=== PATIENT | female | born 1950 | race Hispanic/Latino ===

== ENCOUNTER 2016-05-31 16:56 | Emergency (ER) | payer OTHER ==
[~2016-05-31] VITALS: Ht 165.1 cm; Wt 55.8 kg
[2016-05-31] MEDS ORDERED: PANTOPRAZOLE SO40 M1 PO (18:01)
--- NOTE | 2016-05-31 18:02 | ED UPPER/LOWER EXTREMITY COMPL ---
History of Present Illness General Chief Complaint: Hand or Wrist Injury Stated Complaint: R WRIST INJURY Source: patient, family Exam Limitations: language barrier Vital Signs & Intake/Output Vital Signs & Intake/Output Vital Signs Date Time Temp Pulse Resp B/P Pulse O2 O2 Flow FiO2 Ox Delivery Rate 05/31 1858 98.5 66 20 129/61 98 Room Air 05/31 1715 97.7 05/31 1711 97.7 65 18 129/74 99 Room Air Allergies Coded Allergies: No Known Allergies (05/31/16) Reconcile Medications Hydrocodone/Acetaminophen (Vicodin 5-300 MG Tablet) 5 MG-300 MG TABLET 1 TAB PO TID PRN PAIN Pantoprazole Sodium 40 MG TABLET.DR 1 TAB PO DAILY GI (Reported) Triage Note: PT TO ED FOR A SLIP AND FALL ON ICE, LANDED ON R WRIST, WRIST APPEARS SWOLLEN, TENDER TO PALPATION, +PULSES AND SENSATION. Triage Nurses Notes Reviewed? yes Onset: Abrupt Duration: constant Timing: single episode today Severity: severe Severity Numbers: 7 Pain/Injury Location: Right: Wrist. Method of Injury: direct blow, fall No Modifying Factors: none Modifying Factors: Improves With: rest. Worsens With: movement. HPI: Patient is a 65-year-old female who presents to emergency room with daughter in which patient is primarily Emirati-speaking only and was daughter translate that patient was walking today fell on slipped on ice brace her fall with her right outstretched upper extremity and resulted in acute onset of sharp stabbing severe localized right wrist pain. Patient is right arm dominant. Denies any head strike elbow pain is otherwise without complaints. No medications prior to arrival. Skin is intact (MIKE HERNANDEZ) Past History Travel History Traveled to [place] past 21 day No Medical History Any Pertinent Medical History? none Neurological: NONE EENT: NONE Cardiovascular: NONE Respiratory: NONE Gastrointestinal: NONE Hepatic: NONE Renal: NONE Musculoskeletal: NONE Psychiatric: NONE Endocrine: NONE Blood Disorders: NONE Cancer(s): NONE DENTIST/Reproductive: NONE Surgical History Surgical History: non-contributory Psychosocial History What is your primary language Emirati Tobacco Use: Never used ETOH Use: denies use Illicit Drug Use: denies illicit drug use Family History Hx Contributory? No (MIKE HERNANDEZ) Review of Systems Review of Systems Constitutional: Reports: no symptoms. EENTM: Reports: no symptoms. Respiratory: Reports: no symptoms. Cardiovascular: Reports: no symptoms. Gastrointestinal/Abdominal: Reports: no symptoms. Genitourinary: Reports: no symptoms. Musculoskeletal: Reports: see HPI, joint pain. Skin: Reports: no symptoms. Neurological/Psychological: Reports: no symptoms. Hematologic/Endocrine: Reports: no symptoms. Immunological: Reports: no symptoms. All Other Systems: Reviewed and Negative (MIKE HERNANDEZ) Physical Exam Physical Exam General Appearance: mild distress Neurologic/Tendon: normal sensation, normal motor functions, normal tendon functions, responds to pain, no evidence tendon injury Skin: intact, normal color, warm/dry Comments: Well-developed well-nourished no apparent distress. HEENT: Atraumatic, extraocular motion intact Neck: Supple, no lymphadenopathy Back: Nontender Respiratory: No respiratory distress Extremities: Right shoulder normal inspection nontender Right elbow normal inspection nontender full active range of motion Right wrist generalized point tenderness noted decreased active range of motion noted Right hand mild scaphoid point tenderness noted Right upper extremity dermatomes intact radial pulse +2 Neuro: Alert and oriented x3 Psych: Mood affect normal, normal memory normal judgment. (MIKE HERNANDEZ) Progress Differential Diagnosis: arterial insufficiency, compartment syndrome, contusion, dislocation, DVT, fracture, gout, septic arthritis, sprain, tendon injury Plan of Care: Orders Procedure Date/time Status XRY-WRIST COMPLETE-RIGHT 05/31 1712 Active Patient was stressed the importance of close monitoring and follow-up with orthopedic doctor and she will comply. Patient did have concerns of nondisplaced radial fracture however there was mild scaphoid point tenderness and which again I stressed the importance of close monitoring with orthopedic doctor. Shoulder immobilizer and sugar tong wrist splint was applied in which pain post neurovascular was intact. Upon discharge patient looked well no apparent distress and will comply with discharge instructions and had no questions (MIKE HERNANDEZ) Diagnostic Imaging: Viewed by Me: Radiology Read. Radiology Impression: acute abnormality Comments: PATIENT: YOANA WEST PRESENT AGE: 65 PATIENT ACCOUNT NO: [id number] : 51 LOCATION: [facility] ORDERING PHYSICIAN: AMPARO PINEDA DO SERVICE DATE: 05/31/16-1712 EXAM TYPE: RAD - XRY-WRIST COMPLETE-RIGHT EXAMINATION: XR WRIST, RIGHT CLINICAL INFORMATION: 65-year-old female presented with swelling, pain at the right wrist following fall. COMPARISON: None TECHNIQUE: AP, lateral, and oblique views of the right wrist. FINDINGS: Subtle transverse radiolucencies are noted along the lateral aspect of the distal metaphysis of the right radius with subtle cortical irregularity along the ulnar aspect. Although, there is no definite evidence of any displaced fracture identified, the findings may represent subtle nondisplaced fracture. Follow up noncontrast CT scan of the right wrist may be considered for further clarification, if clinically appropriate. Mild osteoarthrosis is noted at the 1st carpometacarpal joint. The remainder of the visualized bones otherwise appear unremarkable. The soft tissues are unremarkable. IMPRESSION: Possible subtle nondisplaced fracture involving the distal metaphysis of the right radius. Follow up noncontrast CT scan of the right wrist may be considered for further clarification, if clinically appropriate. (MIKE HERNANDEZ) Departure Departure Disposition: HOME OR SELF CARE Condition: Stable Clinical Impression Primary Impression: Right radial fracture Referrals: ELIEL SEARS APRN (PCP/Family) ALICE MAN MD Additional Instructions: As discussed begin the prescription of Vicodin as directed for pain. This prescription is waiting at [facility]. Always use the splint that has been applied to in the emergency room and leave on at all times and to you follow up with orthopedic doctor. Tomorrow please call orthopedic Dr. Man for further evaluation treatment. If symptoms worsen return to emergency room. Always use the shoulder immobilizer placed and you in the emergency room for support of your arm. Departure Forms: Customer Survey General Discharge Information Prescriptions: Current Visit Scripts Hydrocodone/Acetaminophen (Vicodin 5-300 MG Tablet) 1 TAB PO TID PRN PAIN #15 TAB (MIKE HERNANDEZ) PA/ZIGZAG TOPSTITCHER Co-Sign Statement Statement: ED Attending supervision documentation- x I saw and evaluated the patient. I have also reviewed all the pertinent lab results and diagnostic results. I agree with the findings and the plan of care as documented in the PA's/ZIGZAG TOPSTITCHER's documentation. [] I have reviewed the ED Record and agree with the PA's/ZIGZAG TOPSTITCHER's documentation. [] Additions or exceptions (if any) to the PAs/ZIGZAG TOPSTITCHER's note and plan are summarized below: [] (CLEM DE LA VEGA,CHARLI) Procedures Splinting Location: RIGHT WRIST Manual Alignment Performed: No Hand-Made Type: orthoglass Splint: sugar-tong Splint Applied By: splint applied by me Pre-Proc Neuro Vasc Exam: normal Post-Proc Neuro Vasc Exam: normal (JEVON BULLOCK,MIKE)
--- NOTE | 2016-05-31 18:06 | RADIOLOGY REPORT ---
EXAMINATION: XR WRIST, RIGHT CLINICAL INFORMATION: 65-year-old female presented with swelling, pain at the right wrist following fall. COMPARISON: None TECHNIQUE: AP, lateral, and oblique views of the right wrist. FINDINGS: Subtle transverse radiolucencies are noted along the lateral aspect of the distal metaphysis of the right radius with subtle cortical irregularity along the ulnar aspect. Although, there is no definite evidence of any displaced fracture identified, the findings may represent subtle nondisplaced fracture. Follow up noncontrast CT scan of the right wrist may be considered for further clarification, if clinically appropriate. Mild osteoarthrosis is noted at the 1st carpometacarpal joint. The remainder of the visualized bones otherwise appear unremarkable. The soft tissues are unremarkable. IMPRESSION: Possible subtle nondisplaced fracture involving the distal metaphysis of the right radius. Follow up noncontrast CT scan of the right wrist may be considered for further clarification, if clinically appropriate. This critical result was discussed with Dr. Sudeep Lauren at 5:57 PM on 05/31/2016 and it was ascertained that the content and urgency of the report was understood at the time of direct communication.
[2016-05-31] MEDS ORDERED: VICODIN 5-3001 EACH PO (18:46)
[2016-05-31 18:58] VITALS: BP 129/61
== END 2016-05-31 19:02 ==
LOC: ERH 16:56
DX: S52.591A Other fractures of lower end of right radius, initial encounter for closed fracture (principal); W00.0XXA Fall on same level due to ice and snow, initial encounter
CPT/HCPCS: 73110-RT

== ENCOUNTER 2017-07-04 07:01 | Observation (INO) | payer OTHER ==
[~2017-07-04] VITALS: Ht 165.1 cm; Wt 63.5 kg
[~2017-07-04 07:01] MED LIST: PANTOPRAZOLE SO40 M1 PO; VICODIN 5-3001 EACH PO
[2017-07-04 08:13] LABS: ABSOLUTE BASOPHIL COUNT 0 /CUMM (0.0-0.2); ABSOLUTE EOSINOPHIL COUNT 0.1 /CUMM (0.0-0.7); ABSOLUTE GRANULOCYTE CT 4.1 /CUMM (1.4-6.5); ABSOLUTE LYMPH COUNT 2.3 /CUMM (1.2-3.4); ABSOLUTE MONOCYTE COUNT 0.4 /CUMM (0.10-0.60); BASOPHIL % 0.3 % (0.0-2.0); EOSINOPHIL % 1.5 % (0-5); GRANULOCYTE % 59.5 % (42.2-75.2); HEMATOCRIT 35.4 % (37-47); MEAN CORPUSCULAR HGB 29.4 PG (27.0-31.0); MEAN CORPUSCULAR HGB CONC 33.5 G/DL (33.0-37.0); MEAN PLATELET VOLUME 8.3 FL (7.4-10.4); PLATELET COUNT 208 /CUMM (130-400); RBC DISTRIBUTION WIDTH 14.7 % (11.5-14.5); RED BLOOD CELL CT 4.02 /CUMM (4.20-5.40); WHITE BLOOD CELL COUNT 6.9 /CUMM (4.8-10.8)
--- NOTE | 2017-07-04 08:17 | CT SCAN REPORT ---
EXAMINATION: CT HEAD WITHOUT CONTRAST CLINICAL INFORMATION: Vertigo and headache. COMPARISON: None. TECHNIQUE: Contiguous axial imaging was performed from the skull base to vertex without intravenous administration of contrast. DLP: 551.28 mGy-cm FINDINGS: There is no evidence of acute intracranial hemorrhage or territorial infarction. No abnormal mass effect or midline shift is seen. Jackson to white matter differentiation is well preserved. No extra-axial fluid collections are identified. The ventricles are normal in size. There is no abnormal attenuation within the brain parenchyma. The osseous structures and soft tissues are normal. The included mastoid air cells and visualized portions of the paranasal sinuses are well aerated. IMPRESSION: No acute intracranial pathology.
--- NOTE | 2017-07-04 09:43 | ED GENERAL ADULT ---
History of Present Illness General Chief Complaint: General Adult Stated Complaint: "SWEATING, HOT, DIZZY, N+V+D" Source: patient Exam Limitations: language barrier Vital Signs & Intake/Output Vital Signs & Intake/Output Vital Signs Date Time Temp Pulse Resp B/P B/P Pulse O2 O2 Flow FiO2 Mean Ox Delivery Rate 07/04 0719 97.0 63 20 134/80 100 Room Air Allergies Coded Allergies: No Known Allergies (05/31/16) Reconcile Medications Hydrocodone/Acetaminophen (Vicodin 5-300 MG Tablet) 5 MG-300 MG TABLET 1 TAB PO TID PRN PAIN Pantoprazole Sodium 40 MG TABLET.DR 1 TAB PO DAILY GI (Reported) Triage Note: PT TO ED WITH MULTIPLE FAMILY MEMBERS FOR C/O FEELING DIZZY WITH NAUSEA SINCE THIS AM. PT IS LATVIAN SPEAKING. EKG DONE. PT DENIES PAIN. Triage Nurses Notes Reviewed? yes Onset: Abrupt Duration: hour(s): Timing: recent history HPI: 07/04/17 9:30 AM 66-year-old female presents to the emergency department complaining of dizziness. According to the patient and her daughter who is translating; she was in her usual state of health until this morning when she had severe dizziness on getting out of bed. She also has a bitemporal headache. She denies chest pain abdominal pain fever or other complaints. On physical exam she has bilateral horizontal fatiguing nystagmus. Neurological exam is otherwise normal. Initial EKG revealed normal sinus rhythm. Labs were ordered. On nursing evaluation it was noted the patient had a irregular pulse and a follow-up EKG was ordered which identified new-onset atrial fibrillation. Past History Travel History Traveled to [place] past 21 day No Medical History Any Pertinent Medical History? see below for history Neurological: NONE EENT: NONE Cardiovascular: NONE Respiratory: NONE Gastrointestinal: NONE Hepatic: NONE Renal: NONE Musculoskeletal: NONE Psychiatric: NONE Endocrine: NONE Blood Disorders: NONE Cancer(s): NONE PUBLIC WORKS COMMISSIONER/Reproductive: NONE Surgical History Surgical History: non-contributory Psychosocial History What is your primary language Korean Tobacco Use: Never used ETOH Use: denies use Illicit Drug Use: denies illicit drug use Family History Hx Contributory? No Review of Systems Review of Systems Constitutional: Denies: fever. EENTM: Denies: visual changes. Respiratory: Denies: short of breath. Cardiovascular: Denies: chest pain. GI: Denies: abdominal pain. Genitourinary: Reports: no symptoms. Musculoskeletal: Reports: no symptoms. Skin: Reports: no symptoms. Neurological/Psychological: Reports: other (DIZZINESS). Hematologic/Endocrine: Reports: no symptoms. Immunologic/Allergic: Reports: no symptoms. Physical Exam Physical Exam General Appearance: well developed/nourished, alert, awake, anxious, mild distress Head: atraumatic, normal appearance Eyes: Bilateral: normal appearance, PERRL, EOMI (NYSTAGMUS). Ears, Nose, Throat: normal pharynx, normal ENT inspection Neck: normal inspection, supple, full range of motion Respiratory: normal breath sounds, chest non-tender, no respiratory distress Cardiovascular: regular rate/rhythm Peripheral Pulses: 4+ radial (R), 4+ radial (L) Gastrointestinal: soft, non-tender Back: normal range of motion Extremities: no edema Neurologic/Psych: no motor/sensory deficits, awake, alert, oriented x 3 Skin: intact, normal color, warm/dry Core Measures ACS in differential dx? Yes CVA/TIA Diagnosis: No Sepsis Present: No Sepsis Focused Exam Completed? No Progress Differential Diagnoses I considered the following diagnoses in my evaluation of the patient: [Vertigo, TIA, CVA, dysrhythmia, electrolyte derangement, anemia, Lyme disease, endocrine disorder] Plan of Care: Orders Procedure Date/time Status Heart Healthy Diet 07/04 L Active Patient Data 07/[address] in observation 07/04 0957 Active ED Holding Orders 07/04 0957 Active Vital Signs 07/04 0957 Active Code Status 07/04 0957 Active EKG 07/04 0828 Active Add-on Test (ER Only) 07/04 0827 Active TROPONIN LEVEL 07/04 0801 Complete Saline Lock 07/04 0752 Active RAPID VIRAL INFLUENZA A 07/04 0751 Complete COMPREHENSIVE METABOLIC PANEL 07/04 0751 Complete CBC WITHOUT DIFFERENTIAL 07/04 0751 Complete EKG 07/04 0705 Active Current Medications Sig/Arcadio Start time Last Medication Dose Stop Time Status Admin Aspirin 325 MG ONCE ONE 07/04 1000 UNVr (Aspirin) 07/04 1001 Laboratory Tests 07/04/17 0801: Anion Gap 9, Estimated GFR > 60, BUN/Creatinine Ratio 38.3 H, Glucose 104 H, Calcium 9.5, Total Bilirubin 0.5, AST 59 H, ALT 55 H, Alkaline Phosphatase 117 , Troponin I < 0.01, Total Protein 6.7, Albumin 3.8, Globulin 2.9, Albumin/ Globulin Ratio 1.3, CBC w Diff NO MAN DIFF REQ, RBC 4.02 L, MCV 88.0, MCH 29.4, MCHC 33.5, RDW 14.7 H, MPV 8.3, Gran % 59.5, Lymphocytes % 33.5, Monocytes % 5.2, Eosinophils % 1.5, Basophils % 0.3, Absolute Granulocytes 4.1, Absolute Lymphocytes 2.3, Absolute Monocytes 0.4, Absolute Eosinophils 0.1, Absolute Basophils 0 Microbiology 07/04 0805 NASOPHARYN: Influenza Virus A & B Rapid Smear - COMP Initial ED EKG: NSR Repeat EKG: changed (ATRIAL FIBRILATION) Departure Departure Disposition: STILL A PATIENT Condition: Stable Clinical Impression Primary Impression: Vertigo Secondary Impressions: New onset atrial fibrillation Referrals: Yayo Rivera APRN (PCP/Family) Departure Forms: Customer Survey General Discharge Information Admission Note Documentation of Exam: Documentation of any treatments & extenuating circumstances including Concerns Regarding Discharge (functional status, medication knowledge or non-compliance, living conditions, etc.) that warrant an admission rather than observation: Observation Note Spoke With: Rey Camarillo MD Physician Advisor Notified: AMPARO PINEDA DO Place Patient In: Non-ED OBS Care Area Rationale for Observation: My rational for observation is as follows [patient is being placed in observation for serial troponins, cardiology consultation, inpatient echocardiogram, consider MRI of the head in the presence of A. fib to exclude cerebellar infarct as the patient presents with vertigo. PO aspirin was given. The patternmaker sample recommended starting the patient on Eliquis]. The case was discussed with Dr. Knapp. Critical Care Note Critical Care Note Critical Care Time: 30-74 min
--- NOTE | 2017-07-04 10:15 | History & Physical ---
[facility] 07[facility]04[facility] 1015: General Information and HPI MD Statement: I have seen and personally examined YOANA WEST and documented this H&P. The patient is a 66 year old F who presented with a patient stated chief complaint of [lightheadedness, headache, chest pain, right arm numbness, nausea/ vomiting]. Source of Information: patient, family, old records Exam Limitations: no limitations History of Present Illness: Mrs. Sonja berman is a 66 yo lady with no siginificant PMHx presented to emergency department with a chief complaint of lightheadedness, nausea, vomiting , headache, chest pain, and right arm numbness. Patient woke up today at 5 AM when she went to the bathroom she felt dizzy, like the room spinning around her, she didn't lost her consciousness but she felt nauseous, diaphoretic, she also noticed that she had chest pressure at the substernal area comes and goes, lasts for seconds, not related to the movement, or respiration, no radiation but it's associated with right arm numbness that happened on the same time. She also reports bitemporal headache pressure in nature, radiated to the occipital region, moderate severity, with no blurry vision, no ear pain, no tinnitus. She denies similar complaints before, she reported that she is eating and drinking normally, no recent emotional stress, yesterday she was totally fine shopping at the mall doing her nails. However she noticed that she started to feel heart racing about 15 days ago but she didn't pay attention to it, at that time she also started to notice the numbness on the right hand. She also reports when she feels the heart racing it's associated with difficulty breathing with difficulty taking deep breath. She denies any fever, chills, loss of consciousness, vision changes, and no changes in urinary or bowel habits. Allergies/Medications Allergies: Coded Allergies: No Known Allergies (05/31/16) Home Med list Pantoprazole Sodium 40 MG TABLET.DR 1 TAB PO DAILY GI (Reported) Past History Travel History Traveled to [place] past 21 day No Medical History Neurological: NONE EENT: NONE Cardiovascular: NONE Respiratory: NONE Gastrointestinal: NONE Hepatic: NONE Renal: NONE Musculoskeletal: NONE Psychiatric: NONE Endocrine: NONE Blood Disorders: NONE Cancer(s): NONE GAME MODERATOR/Reproductive: NONE Surgical History Surgical History: non-contributory Past Family/Social History Family History Relations & Conditions if any MOTHER Patient's father is in good health FATHER Patient's father is in good health Psychosocial History ETOH Use: denies use Illicit Drug Use: denies illicit drug use Functional Ability ADLs Independent: dressing, eating, toileting, bathing. Ambulation: independent IADLs Independent: shopping, housework, finances, food prep, telephone, transportation , medication admin. Review of Systems Review of Systems Constitutional: Reports: no symptoms. EENTM: Reports: no symptoms. Cardiovascular: Reports: chest pain, palpitations. Respiratory: Reports: see HPI. GI: Reports: no symptoms. Genitourinary: Reports: no symptoms. Musculoskeletal: Reports: no symptoms. Skin: Reports: no symptoms. Neurological/Psychological: Reports: headache, numbness. Hematologic/Endocrine: Reports: no symptoms. Immunologic/Allergic: Reports: no symptoms. All Other Systems: Reviewed and Negative Exam & Diagnostic Data Last 24 Hrs of Vital Signs/I&O Vital Signs Date Time Temp Pulse Resp B/P B/P Pulse O2 O2 Flow FiO2 Mean Ox Delivery Rate 07/04 0719 97.0 63 20 134/80 100 Room Air Intake & Output 07/04 1600 07/04 0800 07/04 0000 Intake Total Output Total Balance Patient 140 lb Weight Weight Estimated Measurement Method Physical Exam General Appearance Alert, Oriented X3, Cooperative, Mild Distress Skin No Rashes, No Breakdown, No Significant Lesion Skin Temp/Moisture Exam: Warm/Dry Sepsis Skin Exam (color): Normal for Ethnicity HEENT Atraumatic, PERRLA, EOMI, Mucous Membr. moist/pink, horizontal nystagmus Neck Supple, No JVD, No thryomegaly, +2 Carotid Pulse wo Bruit, No LAD Lymphatic Axillary nl, Cervical nl Cardiovascular Normal S1, Normal S2, No Murmurs, irregular pulse Lungs Clear to Auscultation, Normal Air Movement Abdomen Normal Bowel Sounds, Soft, No Tenderness Neurological Normal Gait, Normal Speech, Strength at 5/5 X4 Ext, Normal Tone, Sensation Intact, Cranial Nerves 3-12 NL, Reflexes 2+ Extremities No Edema, Normal Pulses Last 24 Hrs of Labs/Yogn: Laboratory Tests 07/04/17 0801: Anion Gap 9, Estimated GFR > 60, BUN/Creatinine Ratio 38.3 H, Glucose 104 H, Calcium 9.5, Total Bilirubin 0.5, AST 59 H, ALT 55 H, Alkaline Phosphatase 117 , Troponin I < 0.01, Total Protein 6.7, Albumin 3.8, Globulin 2.9, Albumin/ Globulin Ratio 1.3, CBC w Diff NO MAN DIFF REQ, RBC 4.02 L, MCV 88.0, MCH 29.4, MCHC 33.5, RDW 14.7 H, MPV 8.3, Gran % 59.5, Lymphocytes % 33.5, Monocytes % 5.2, Eosinophils % 1.5, Basophils % 0.3, Absolute Granulocytes 4.1, Absolute Lymphocytes 2.3, Absolute Monocytes 0.4, Absolute Eosinophils 0.1, Absolute Basophils 0 Microbiology 07/04 08 NASOPHARYN: Influenza Virus A & B Rapid Smear - COMP Diagnostic Data EKG Results A. fib, 107, no ST-T wave changes, QTC [address]-Head: no acute abnormalities Assessment/Plan Assessment: Mrs. Sonja berman is a 66 yo lady with no siginificant PMHx presented to emergency department with a chief complaint of lightheadedness, nausea, vomiting , headache, chest pain, and right arm numbness. Found to have A. fib with rapid ventricular response admitted for new onset A. fib and intractable vertigo Vitals, examination, labs, and imaging as above Assessment: #New onset A. fib with rapid ventricular response #Intractable vertigo #Atypical chest pain #Right arm numbness Plan: * We'll admit the patient under observation to telemetry floor * We'll trend troponins and EKG * We'll start the patient on low-dose by mouth metoprolol * Her chads score is 2, will start her on Eliquis 5 mg twice a day * Cardiology consult placed with Dr. Knapp * We'll obtain Echocardiogram to rule out any valvular lesion or wall motion abnormalities * Will obtain head MRI * TSH, T4, lipid panel * Heart healthy diet * DVT prophylaxis Eliquis * She is a full code As Ranked By This Provider Problem List: 1. Vertigo 2. New onset atrial fibrillation Core Measures/Misc (01/03) Acute Coronary Syndrome ACS Diagnosis: No Congestive Heart Failure Congestive Heart Failure Diagnosis No Cerebrovascular Accident CVA/TIA Diagnosis: No VTE (View Protocol) VTE Risk Factors Age>40 No Mechanical VTE Prophylaxis d/t N/A MechProphylax Ordered No VTE Pharm Prophylaxis d/t NA PharmProphylax ordered Sepsis (View protocol) Sepsis Present: No Resident Review Statement Resident Statement: H&P documented by resident Rabia DE LA VEGAJennydali 07/04/17 1611: Attending Review Statement Attending Statement Attending MD Statement: examined this patient, discuss w/resident/PA/LAUNDRY LABORER, agreed w/resident/PA/LAUNDRY LABORER, discussed with family, reviewed EMR data (avail), discussed with nursing, amended to note Attending Assessment/Plan: Patient is a 66-year-old female with no significant medical history who presented to the emergency room with complaints of dizziness. She arrived hemodynamically stable. She was in sinus rhythm at the time of her evaluation. She was found to have vertical nystagmus on exam. Initial plan was to discharge patient home with a diagnosis of vertigo however on reevaluation she was noted to be in atrial fibrillation. She was started on low-dose beta-martínez therapy and referred to the medical service for hospitalization. I evaluated the patient in the emergency room she was in atrial fibrillation with heart rate in the 110s. Blood pressure was borderline in the low 100s. She was asymptomatic denying chest pain shortness of breath or palpitations. On examination she does not appear to be in any distress. Pupils were equal and reactive. She did have vertical nystagmus. She had no carotid bruit. She had no palpable thyromegaly. Heart sounds are irregular at the time. Lungs are clear to auscultation. Abdomen soft and nontender. She had no peripheral edema. While in the emergency room patient spontaneously converted back to normal sinus rhythm. Problems: 1. Paroxysmal atrial fibrillation. 2. Vertigo with vertical nystagmus. 3. Transaminitis. Plan: -Place on observation status. -Monitor on telemetry overnight. Obtain Echocardiogram. -Continue on low dose beta-martínez. -Anticoagulation therapy with Eliquis. -Repeat LFts in AM. Obtain viral hepatitis panel. DC protonix. Obtain right upper quadrant sonogram. -Her vertigo appears unrelated to her afib. Obtain MRI to r/o post-circulation stroke. -Begin patient on meclizine 12.5mg three times daily.
--- NOTE | 2017-07-04 19:40 | Cons- Cardiology ---
General Information and HPI Consulting Request Date of Consult: 07/04/17 Requested By: Rey Camarillo MD Reason for Consult: Paroxysmal AF Source of Information: patient, family History of Present Illness: the patient is a 66-year-old female with no significant past medical history. She presented to the [facility] emergency room today with a chief complaint of lightheadedness, vertigo, nausea and vomiting. She also noted some chest discomfort. The patient's symptoms began at about 5 AM when she woke to go to the bathroom. In the emergency room, she was felt to have evidence of vertigo. However, while in the emergency room, the patient was noted to go from sinus rhythm into atrial fibrillation with a fairly rapid rate. Subsequently, she has now reverted again to sinus rhythm. The patient denies any major symptoms during the episode of atrial fibrillation. by history, she has noticed some intermittent heart racing episodes. No other known cardiac history present. Allergies/Medications Allergies: Coded Allergies: No Known Allergies (05/31/16) Home Med List: Pantoprazole Sodium 40 MG TABLET.DR 1 TAB PO DAILY GI (Reported) Current Medications: Current Medications Sig/Arcadio Start time Last Medication Dose Route Stop Time Status Admin Acetaminophen 650 MG Q6P PRN 07/04 1030 AC PO Acetaminophen 0 .STK-MED ONE 07/04 0829 DC PO Acetaminophen 650 MG ONCE ONE 07/04 0800 DC 07/04 PO 07/04 0801 0830 Apixaban 5 MG BID 07/04 2200 CAN PO Apixaban 5 MG BID 07/04 2200 AC PO Apixaban 5 MG BID 07/04 1046 DC 07/04 PO 1115 Aspirin 0 .STK-MED ONE 07/04 1030 DC PO Aspirin 325 MG ONCE ONE 07/04 1000 DC 07/04 PO 07/04 1001 1028 Atorvastatin Calcium 40 MG 1700 07/04 1700 AC 07/04 PO 1723 Hydrocodone Bitart/ 1 TAB Q6P PRN 07/04 1030 AC Acetaminophen PO Lorazepam 0 .STK-MED ONE 07/04 1031 DC PO Lorazepam 0.5 MG STAT STA 07/04 1001 DC 07/04 IV 07/04 1002 1027 Meclizine HCl 0 .STK-MED ONE 07/04 1813 DC PO Meclizine HCl 12.5 MG TID 07/04 1800 AC 07/04 PO 1809 Meclizine HCl 0 .STK-MED ONE 07/04 0828 DC PO Meclizine HCl 25 MG ONCE ONE 07/04 0800 DC 07/04 PO 07/04 0801 0830 Metoprolol Tartrate 6.25 MG BID 07/04 1045 AC 07/04 PO 1140 Omeprazole 40 MG DAILY AC 07/05 0700 CAN PO Pantoprazole Sodium 40 MG DAILY 07/05 1000 CAN IV Past History Travel History Traveled to [place] past 21 day No Medical History Neurological: NONE EENT: NONE Cardiovascular: NONE Respiratory: NONE Gastrointestinal: NONE Hepatic: NONE Renal: NONE Musculoskeletal: NONE Psychiatric: NONE Endocrine: NONE Blood Disorders: NONE Cancer(s): NONE 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 Ambulation: independent IADLs Independent: shopping, housework, finances, food prep, telephone, transportation , medication admin. Exam & Diagnostic Data Vital Signs and I&O Vital Signs Date Time Temp Pulse Resp B/P B/P Pulse O2 O2 Flow FiO2 Mean Ox Delivery Rate 07/04 1847 97.6 76 18 100/58 96 Room Air 07/04 1542 98.2 96 18 100/80 95 Room Air 07/04 1335 98.0 105 16 112/78 99 Room Air 07/04 1140 110 104/61 07/04 1140 97.6 110 16 104/61 100 07/04 0915 98.1 69 18 112/69 100 07/04 0719 97.0 63 20 134/80 100 Room Air Intake & Output 07/04 1600 07/04 0800 07/04 0000 07/03 1600 07/03 0800 07/03 0000 Intake Total Output Total Balance Patient 140 lb Weight Weight Estimated Measurement Method Physical Exam: General Appearance Alert, Oriented X3, Cooperative, Mild Distress Skin normal HEENT Atraumatic, PERRLA, EOMI, Mucous Membr. moist/pink, horizontal nystagmus Neck Supple, No JVD, No thryomegaly, +2 Carotid Pulse wo Bruit, No LAD Lymphatic Axillary nl, Cervical nl Cardiovascular regular S1, S2, 1/6 systolic murmur Lungs Clear to Auscultation, Normal Air Movement Abdomen Normal Bowel Sounds, Soft, No Tenderness Neurological Normal /nonfocal Extremities No Edema, Normal Pulses Labs/Yong Results: Laboratory Tests 07/04 07/04 1514 0801 Chemistry Sodium (137 - 145 mmol/L) 139 Potassium (3.5 - 5.1 mmol/L) 4.1 Chloride (98 - 107 mmol/L) 103 Carbon Dioxide (22 - 30 mmol/L) 26 Anion Gap (5 - 16) 9 BUN (7 - 17 mg/dL) 23 H Creatinine (0.5 - 1.0 mg/dL) 0.6 Estimated GFR (>60 ml/min) > 60 BUN/Creatinine Ratio (7 - 25 %) 38.3 H Glucose (65 - 99 mg/dL) 104 H Calcium (8.4 - 10.2 mg/dL) 9.5 Total Bilirubin (0.2 - 1.3 mg/dL) 0.5 AST (14 - 36 U/L) 59 H ALT (9 - 52 U/L) 55 H Alkaline Phosphatase (<127 U/L) 117 Troponin I (< 0.11 ng/ml) < 0.01 < 0.01 Total Protein (6.3 - 8.2 g/dL) 6.7 Albumin (3.5 - 5.0 g/dL) 3.8 Globulin (1.9 - 4.2 gm/dL) 2.9 Albumin/Globulin Ratio (1.1 - 2.2 %) 1.3 TSH (0.270 - 4.200 uIU/mL) 3.720 Thyroxine (T4) (4.5 - 10.9 ug/dL) 7.4 Hematology CBC w Diff NO MAN DIFF REQ WBC (4.8 - 10.8 /CUMM) 6.9 RBC (4.20 - 5.40 /CUMM) 4.02 L Hgb (12.0 - 16.0 G/DL) 11.8 L Hct (37 - 47 %) 35.4 L MCV (81.0 - 99.0 FL) 88.0 MCH (27.0 - 31.0 PG) 29.4 MCHC (33.0 - 37.0 G/DL) 33.5 RDW (11.5 - 14.5 %) 14.7 H Plt Count (130 - 400 /CUMM) 208 MPV (7.4 - 10.4 FL) 8.3 Gran % (42.2 - 75.2 %) 59.5 Lymphocytes % (20.5 - 51.1 %) 33.5 Monocytes % (1.7 - 9.3 %) 5.2 Eosinophils % (0 - 5 %) 1.5 Basophils % (0.0 - 2.0 %) 0.3 Absolute Granulocytes (1.4 - 6.5 /CUMM) 4.1 Absolute Lymphocytes (1.2 - 3.4 /CUMM) 2.3 Absolute Monocytes (0.10 - 0.60 /CUMM) 0.4 Absolute Eosinophils (0.0 - 0.7 /CUMM) 0.1 Absolute Basophils (0.0 - 0.2 /CUMM) 0 Diagnostic Data EKG Results EKG #1-sinus rhythm with nonspecific ST-T changes EKG #2-atrialfibrillation with relatively rapid ventricular rate Assessment/Plan Assessment/Plan Assessment: 1. Paroxysmal atrial fibrillation of unclear duration 2. Persistent vertigo 3. Atypical chest discomfort 4. mild anemia Recommendations: -Admitted to telemetry monitored floor -Continue metoprolol -Echocardiogram -Begin oral anticoagulation with eliquis 5 mg twice a day -In 24 hours, if the patient remains stable, she can likely be discharged home for further cardiac evaluation as an outpatient. -Otherwise continue management as per the medical team -Vertigo treatment as outlined -Out of bed as tolerated Consult Acknowledgment - Thank you for your consult request.
[2017-07-04 22:39] VITALS: BP 122/64
[2017-07-05 06:50] VITALS: BP 120/66
--- NOTE | 2017-07-05 07:39 | PN-Observation ---
Yaquelin DE LA VEGA,[facility] 07/05/17 0738: Observation Note Observation Note _ I have personally examined YOANA WEST. her disposition is uncertain at this time. Before a determination can be made, she requires continued observation for the following reasons [light headedness and nausea]. Assessment/Plan Medical Assessment: Mrs. Sonja berman is a 66 yo lady with no siginificant PMHx presented to emergency department with a chief complaint of lightheadedness, nausea, vomiting , headache, chest pain, and right arm numbness. Found to have A. fib with rapid ventricular response admitted for new onset A. fib and intractable vertigo Vitals, examination, labs, and imaging as above Assessment: #New onset A. fib with rapid ventricular response #Intractable vertigo #Atypical chest pain #Right arm numbness Plan: * Continue to observe on telemetry floor * troponins and EKG were normal which ruled out ACS * Continue p.o. metoprolol home dose * Continue Eliquis 5 mg twice a day * Cardiology recommendation appreciated * Follow-up on echo * Follow-up an MRI * TSH and T4 and lipid profile are normal * Heart healthy diet * DVT prophylaxis Eliquis * She is a full code Problem List: 1. New onset atrial fibrillation Subjective Follow-up For: New onset A. fib Tele-Events Since Last Visit: No overnight events Subjective: Patient was seen and examined at bedside, denies any complaints Review of Systems Constitutional: Reports: see HPI. Objective Last 24 Hrs of Vital Signs/I&O Vital Signs Date Time Temp Pulse Resp B/P B/P Pulse O2 O2 Flow FiO2 Mean Ox Delivery Rate 07/05 1200 62 138/78 07/05 1154 63 138/78 07/05 0650 98.2 67 20 120/66 98 Room Air 07/04 2239 98.1 66 20 122/64 96 Room Air 07/04 2124 98.2 15 98 Room Air 07/04 2124 84 120/61 07/04 2018 98.0 76 16 114/67 98 Room Air 07/04 1847 97.6 76 18 100/58 96 Room Air 07/04 1542 98.2 96 18 100/80 95 Room Air Intake & Output 07/05 1600 07/05 0800 07/05 0000 Intake Total 0 Output Total Balance 0 Intake, Oral 0 Patient 140 lb Weight Physical Exam General Appearance: Alert, Oriented X3, Cooperative, No Acute Distress HEENT: Atraumatic, PERRLA, EOMI, Mucous Membr. moist/pink Neck: Supple, No JVD Cardiovascular: Normal S1, Normal S2, No Murmurs Lungs: Clear to Auscultation Abdomen: Normal Bowel Sounds, Soft, No Tenderness Neurological: Normal Speech, Strength at 5/5 X4 Ext, Normal Tone, Sensation Intact Extremities: No Clubbing, No Cyanosis, No Edema Vascular: Normal Pulses Current Medications: Current Medications Sig/Arcadio Start time Last Medication Dose Route Stop Time Status Admin Acetaminophen 650 MG Q6P PRN 07/04 1030 AC PO Apixaban 5 MG BID 07/04 2200 AC 07/05 PO 1200 Atorvastatin Calcium 40 MG 1700 07/04 1700 AC 07/04 PO 1723 Hydrocodone Bitart/ 1 TAB Q6P PRN 07/04 1030 AC Acetaminophen PO Meclizine HCl 0 .STK-MED ONE 07/04 2113 DC PO Meclizine HCl 0 .STK-MED ONE 07/04 1813 DC PO Meclizine HCl 12.5 MG TID 07/04 1800 AC 07/04 PO 1809 Metoprolol Tartrate 6.25 MG BID 07/04 1045 AC 07/05 PO 1200 Omeprazole 40 MG DAILY AC 07/05 0700 CAN PO Last 24 Hrs of Labs/Mics: Laboratory Tests 07/05/17 0611: Anion Gap 10, Estimated GFR > 60, BUN/Creatinine Ratio 31.4 H, Total Bilirubin 0.6, Direct Bilirubin 0.4, AST 36, ALT 56 H, Alkaline Phosphatase 92, Total Protein 6.4, Albumin 3.5, Triglycerides 88, Cholesterol 197, LDL Cholesterol, Calc 118, HDL Cholesterol 62 H, Cholesterol/HDL Ratio 3, CBC w Diff NO MAN DIFF REQ, RBC 4.06 L, MCV 88.8, MCH 29.5, MCHC 33.3, RDW 14.6 H, MPV 9.1, Gran % 57.0, Lymphocytes % 35.3, Monocytes % 5.5, Eosinophils % 1.6, Basophils % 0.6, Absolute Granulocytes 3.7, Absolute Lymphocytes 2.3, Absolute Monocytes 0.4, Absolute Eosinophils 0.1, Absolute Basophils 0 07/04/17 1514: Troponin I < 0.01 Serg Zarate 07/05/17 1325: Attending MD Review Statement Attending Statement Attending MD Statement: examined this patient, discuss w/resident/PA/BATTERY STACKER, agreed w/resident/PA/BATTERY STACKER, discussed with family, reviewed EMR data (avail), discussed w/ nursing, discussed w/case mgmt Attending Assessment/Plan: Await MRI and echo results. PT consulted for vestibular rehab. Pt with new onset Afib also so started on eliquis. dw pts family at bedside the care plan.
[2017-07-05 08:16] LABS: ABSOLUTE BASOPHIL COUNT 0 /CUMM (0.0-0.2); ABSOLUTE EOSINOPHIL COUNT 0.1 /CUMM (0.0-0.7); ABSOLUTE GRANULOCYTE CT 3.7 /CUMM (1.4-6.5); ABSOLUTE LYMPH COUNT 2.3 /CUMM (1.2-3.4); ABSOLUTE MONOCYTE COUNT 0.4 /CUMM (0.10-0.60); BASOPHIL % 0.6 % (0.0-2.0); EOSINOPHIL % 1.6 % (0-5); HEMATOCRIT 36.1 % (37-47); MEAN CORPUSCULAR HGB 29.5 PG (27.0-31.0); MEAN CORPUSCULAR HGB CONC 33.3 G/DL (33.0-37.0); MEAN CORPUSCULAR VOLUME 88.8 FL (81.0-99.0); MEAN PLATELET VOLUME 9.1 FL (7.4-10.4); PLATELET COUNT 213 /CUMM (130-400); RBC DISTRIBUTION WIDTH 14.6 % (11.5-14.5); RED BLOOD CELL CT 4.06 /CUMM (4.20-5.40); WHITE BLOOD CELL COUNT 6.6 /CUMM (4.8-10.8)
--- NOTE | 2017-07-05 11:21 | MRI REPORT ---
MR BRAIN WITHOUT IV CONTRAST CLINICAL INFORMATION: Vertigo with severe headaches and nystagmus. COMPARISON: Head CT 07/04/2017. TECHNIQUE: MRI of the brain without contrast was obtained using routine sequences. FINDINGS: There is no hydrocephalus, extra-axial surface collection, or herniation. No parenchymal signal abnormality. The major flow voids at the skull base are preserved. Accounting for artifact, there are no acute infarcts on diffusion-weighted imaging. There is no intracranial hemorrhage on the gradient recalled echo acquisition. The midline structures are normal. The cerebellar tonsils are normally positioned. The cerebellum and brainstem are normal. The craniocervical junction is normal. Osseous marrow signal intensity is homogenous. The visualized soft tissues are unremarkable. IMPRESSION: Unremarkable noncontrast MRI of the brain.
[2017-07-05 11:54] VITALS: BP 138/78
--- NOTE | 2017-07-05 12:14 | PN- Cardiology ---
Subjective Subjective: The patient reports that she is feeling well. She is in sinus rhythm on telemetry. No current cardiac symptoms. No chest pain. No shortness of breath. No diaphoresis. No palpitations. No lightheadedness or dizziness. No nausea or vomiting. Objective Vital Signs and I&Os Vital Signs Date Time Temp Pulse Resp B/P B/P Pulse O2 O2 Flow FiO2 Mean Ox Delivery Rate 07/05 1200 62 138/78 07/05 1154 63 138/78 07/05 0650 98.2 67 20 120/66 98 Room Air 07/04 2239 98.1 66 20 122/64 96 Room Air 07/04 2125 98.2 15 98 Room Air 07/04 2124 84 120/61 07/04 2019 98.0 76 16 114/67 98 Room Air 07/04 1847 97.6 76 18 100/58 96 Room Air 07/04 1542 98.2 96 18 100/80 95 Room Air 07/04 1335 98.0 105 16 112/78 99 Room Air Intake & Output 07/05 1600 07/05 0800 07/05 0000 07/04 1600 07/04 0800 07/04 0000 Intake Total 0 Output Total Balance 0 Intake, Oral 0 Patient 140 lb 140 lb Weight Weight Estimated Measurement Method Physical Exam: Gen: NAD HEENT: normal Lungs: clear to auscultation, normal resp. effort Heart: RRR, S1, S2, 1/6 systolic murmur Abdomen: Soft, nontender, no masses Extremities: No clubbing, cyanosis, or edema. Neuro: Alert and oriented x 3, cranial nerves intact Assessment/Plan Assessment/Plan Assessment: 1. Paroxysmal atrial fibrillation of unclear duration 2. Persistent vertigo 3. Atypical chest discomfort 4. Mild anemia Plan: * Continue Eliquis * Continue metoprolol * Echocardiogram * If patient remains stable and echocardiogram shows no new abnormalities, she will be stable for discharge from cardiac standpoint. * Follow up with Dr. Knapp in 1 week Continue telemetry? Yes
--- NOTE | 2017-07-05 13:01 | ULTRASOUND REPORT ---
EXAMINATION: DUPLEX BILATERAL CAROTID ULTRASOUND CLINICAL INFORMATION: TIA COMPARISON: None. TECHNIQUE: Duplex bilateral carotid US was performed using real-time ultrasound and Doppler techniques (integrating B-mode 2D vascular images, Doppler spectral analysis and color flow Doppler imaging). These techniques were utilized to interrogate the extracranial carotid and vertebral arteries bilaterally. The degree of stenosis is based off criteria similar to NASCET. FINDINGS: 1. On the right: No plaque is present at the carotid bifurcation. Velocities are elevated throughout the ICA but no plaque is seen to suggest a stenosis. Measurements are normal and do not suggest a stenosis of greater than 50% diameter reduction in the right ICA. The vertebral artery is patent demonstrating antegrade flow. The external carotid on the right shows no significant stenosis. 2. On the left: Some minimal plaque is present at the carotid bifurcation but velocity measurements are normal and do not suggest a stenosis of greater than 50% diameter reduction in the left ICA. The vertebral artery is patent demonstrating antegrade flow. The external carotid artery on the left shows no significant stenosis. Subclavian artery waveform is normal. IMPRESSION: There is plaque present in the left internal carotid artery with normal velocities consistent with a minimal 0-49% stenosis. The right side has no plaque seen although velocities are slightly increased.
[2017-07-05] MEDS ORDERED: ELIQUIS5 M1 PO ×2 (13:49→16:02)
[2017-07-05] MEDS ORDERED: LIPITOR40 M1 PO ×2 (13:49→16:02)
[2017-07-05] MEDS ORDERED: MECLIZINE HCL12.5 M1 PO ×3 (13:49→16:02)
[2017-07-05] MEDS ORDERED: METOPROLOL TART25 M1 PO ×2 (13:49→16:02)
--- NOTE | 2017-07-05 13:51 | Patient Discharge Instructions ---
Discharge Instructions General Discharge Information You were seen/treated for: Paroxysmal atrial fibrillation Persistent vertigo Special Instructions: -Please follow-up with your primary care physician within 1 week after discharge -Please follow-up with Dr. Knapp office services associate 1 week after discharge -Please take your medication as prescribed Acute Coronary Syndrome Inclusion Criteria At DC or during hospital stay patient has or had the following: Discharge Core Measures Meds if any: Prescribed or Continued at Discharge Meds if any: NOT Prescribed or Continued at Discharge Congestive Heart Failure Inclusion Criteria At DC or during hospital stay patient has or had the following: Discharge Core Measures Meds if any: Prescribed or Continued at Discharge Meds if any: NOT Prescribed or Continued at Discharge Cerebrovascular accident Inclusion Criteria At DC or during hospital stay patient has or had the following: CVA/TIA Diagnosis No Discharge Core Measures Meds if any: Prescribed or Continued at Discharge Meds if any: NOT Prescribed or Continued at Discharge Venous thromboembolism Discharge Core Measures - Per Current guidelines, there needs to be overlap - treatment for the first 5 days of Warfarin therapy. - If discharged on Warfarin prior to 5 days of - overlap therapy, the patient will need to be - assessed for post discharge needs including - *Post discharge parental anticoagulation - *Warfarin and/or parental anticoagulation education - *Follow up date to check INR post discharge Meds if any: Prescribed or Continued at Discharge Note: Overlap Therapy is Warfarin and Anticoagulant Meds if any: NOT Prescribed or Continued at Discharge
--- NOTE | 2017-07-05 14:21 | ULTRASOUND REPORT ---
EXAMINATION: US ABDOMEN LIMITED CLINICAL INFORMATION: Transaminitis. COMPARISON: There are no prior studies for comparison. TECHNIQUE: Real-time imaging of the right upper quadrant abdominal viscera. FINDINGS: PANCREAS: Normal. LIVER: Normal. The liver demonstrates normal size, contour and echogenicity. No focal lesion or intrahepatic biliary duct dilatation. GALLBLADDER: Normal. The gallbladder is physiologically distended without evidence of stones, sludge, polyps, wall thickening or pericholecystic fluid. COMMON BILE DUCT: Normal in caliber measuring 0.4 cm in diameter. RIGHT KIDNEY: Normal. No hydronephrosis. No renal calculi or focal parenchymal lesions. The kidney measures 9.0 cm in maximum dimension. FREE FLUID: None. IMPRESSION: Normal study.
[2017-07-05 14:27] VITALS: BP 122/70
--- NOTE | 2017-07-05 14:42 | ECHOCARDIOGRAM REPORT ---
YOANA WEST Age: 66 : 1950 Gender: F Exam Date: 07/05/2017 09:52 Exam Location: [address] Ht (in): 65 Wt (lb): 140 BSA: 1.71 BP: 120 / 66 Ordering Physician: Sean Mohan MD Referring Physician: Sean Mohan MD Technologist: Francis Bolanos [facility] Room Number: 185-1 Indications: AFIB/FLUTTER Rhythm: Sinus Technical Quality: Fair FINDINGS Left Ventricle Normal size left ventricle. No obvious regional wall motion abnormalities. Normal left ventricular ejection fraction estimated at 55-60%. Right Ventricle Right ventricle not well visualized, grossly normal. Right Atrium Left Atrium Mild left atrial dilatation. Mitral Valve Structurally normal mitral valve. Trace mitral regurgitation. Aortic Valve Trileaflet aortic valve. Focal thickening of the aortic valve cusps. No aortic stenosis. No aortic regurgitation. Tricuspid Valve Tricuspid valve not well visualized, grossly normal. Mild tricuspid regurgitation. Right ventricular systolic pressure estimated at 30 mmHg. Pulmonic Valve Pulmonic valve not well visualized, grossly normal. Pericardium No pericardial effusion. Great Vessels Normal size aortic root and proximal ascending aorta. CONCLUSIONS 1. Minimal aortic sclerosis is present with no valvular stenosis or insufficiency. 2. The mitral valve is anatomically normal with minimal mitral insufficiency and mild left atrial enlargement. 3. There is no significant pericardial fluid present. 4. THe left ventricular chamber size and systolic function appear normal with no resting wall motion abnormalities. 5. THe right heart structures are grossly normal with mild tricuspid insufficiency and minimal pulmonic insufficiency and no evidence of pulmonary hypertension. Yumiko Knapp M.D. (Electronically Signed) Final Date: 05 July 2017 14:41 MEASUREMENTS (Male / Female) Normal Values 2D ECHO LV Diastolic Diameter PLAX 4.1 cm 4.2 - 5.9 / 3.9 - 5.3 cm LV Systolic Diameter PLAX 2.6 cm 2.1 - 4.0 cm LV Fractional Shortening PLAX 36.6 % 25 - 46 % LV Ejection Fraction 2D Teich 66.8 % IVS Diastolic Thickness 0.9 cm LVPW Diastolic Thickness 1.0 cm LV Relative Wall Thickness 0.5 RV Internal Dim ED PLAX 2.7 cm 1.9 - 3.8 cm LVOT Diameter 1.6 cm Aortic Root Diameter 3.0 cm LA Systolic Diameter LX 3.1 cm 3.0 - 4.0 / 2.7 - 3.8 cm LA Volume 35.0 cm 18 - 58 / 22 - 52 cm Ascending Aorta Diameter 3.0 cm DOPPLER AV Peak Velocity 131.0 cm/s AV Peak Gradient 6.9 mmHg AV Mean Velocity 89.2 cm/s AV Mean Gradient 4.0 mmHg AV Velocity Time Integral 30.0 cm LVOT Peak Velocity 102.0 cm/s LVOT Peak Gradient 4.2 mmHg LVOT Mean Velocity 62.5 cm/s LVOT Mean Gradient 2.0 mmHg LVOT Velocity Time Integral 23.4 cm LVOT Stroke Volume 47.0 cm AV Area Cont Eq vti 1.6 cm AV Area Cont Eq pk 1.6 cm MV Peak Velocity 92.4 cm/s MV Peak Gradient 3.4 mmHg MV Mean Velocity 53.7 cm/s MV Mean Gradient 1.0 mmHg Mitral E Point Velocity 90.8 cm/s Mitral A Point Velocity 73.1 cm/s Mitral E to A Ratio 1.2 MV PHT Velocity 99.1 cm/s MV Deceleration Petroleum 414.0 cm/s MV Pressure Half Time 71.8 ms MV Area PHT 3.1 cm MV Deceleration Time 222.0 ms TR Peak Velocity 248.0 cm/s TR Peak Gradient 24.6 mmHg Right Atrial Pressure 5.0 mmHg Pulmonary Artery Systolic Pressu 29.6 mmHg Right Ventricular Systolic Press 29.6 mmHg PV Peak Velocity 99.3 cm/s PV Peak Gradient 3.9 mmHg PV Mean Velocity 63.2 cm/s PV Mean Gradient 2.0 mmHg PV Velocity Time Integral 21.3 cm LV E' Lateral Velocity 9.8 cm/s Mitral E to LV E' Lateral Ratio 9.3 LV E' Septal Velocity 8.3 cm/s Mitral E to LV E' Septal Ratio 11.0
== END 2017-07-05 17:20 ==
LOC: ERH 07:01 → ERHI 09:57 → 1NO 09:57 → ENRESERV 21:03 → ENTRNSPT 21:58 → EDTRNSPTSTS 22:04 → 1NO 22:11 → CMPTRNSPT 22:38 → 1NO 07-05 08:14 → ENTRNSPT 07-05 17:00 → CMPTRNSPT 07-05 17:19 → 1NO 07-05 17:20
PROVIDERS: Emergency Medicine; Student in an Organized Health Care Education/Training Program
DX: R07.89 Other chest pain (principal); R11.2 Nausea with vomiting, unspecified; I48.0 Paroxysmal atrial fibrillation; R20.0 Anesthesia of skin; R42 Dizziness and giddiness; R74.0 Nonspecific elevation of levels of transaminase and lactic acid dehydrogenase [LDH]; Z79.82 Long term (current) use of aspirin; D64.9 Anemia, unspecified
CPT/HCPCS: 6020; 70551; 36592; 82436; 87804; 87804-59; 93005; 93010; 93306; 96374; 97116-GO; 97161-GP; 97530-GO; G0378